=== PATIENT | female | born 1955 | race Caucasian/White ===

== ENCOUNTER 2017-12-08 08:39 | Emergency (ER) | payer BC ==
[~2017-12-08] VITALS: Ht 167.6 cm; Wt 92.6 kg
[~2017-12-08 08:39] MED LIST: 12 HOUR DECONG120 M1 PO; FLEXERIL5 MG PO; Flonase BOTH NARES; GLIPIZIDE10 MG PO; IRBESARTAN150 MG PO; JANUVIA25 MG PO; LANTUS 10100 UNITS/ SC; LOMOTIL TABLET1 EACH PO; Lomotil,Lonox PO; METFORMIN HCL1000 MG PO; NORCO 5/3251 TABLET PO; NOVOLOG PE100 UNITS/ SC
[2017-12-08 09:27] LABS: HEMATOCRIT 37.6 % (36.0-46.0); HEMOGLOBIN 12.7 G/DL (11.9-15.5); MCH 30.4 PG (29.0-34.0); MCHC 33.8 G/DL (30.0-36.0); PLATELET COUNT 193 K/uL (156-360); RBC DIS.WIDTH-CV 12.6 % (11.8-14.6); RBC DIS.WIDTH-SD 41.3 % (39-53); RED BLOOD COUNT 4.18 M/uL (3.80-5.20); WHITE BLOOD COUNT 7.7 K/uL (4.1-10.2)
[2017-12-08 09:40] LABS: ALBUMIN 4.2 g/dL (3.2-4.8)
[2017-12-08 09:41] LABS: CHLORIDE 106 mEq/L (99-109); POTASSIUM 4.5 mEq/L (3.7-5.4); SODIUM 138 mEq/L (136-147)
[2017-12-08 09:43] LABS: GLUCOSE 208 mg/dL (70-99); TOTAL PROTEIN 7.3 g/dL (6.4-8.3)
[2017-12-08 09:45] LABS: TOTAL BILIRUBIN 0.4 mg/dL (0.0-1.0)
[2017-12-08 09:46] LABS: ALKALINE PHOSPHATASE 76 IU/L (3-129)
[2017-12-08 09:47] LABS: CREATININE 0.9 mg/dL (0.6-1.3); GFR ESTIMATE (CALCULATED) > 59 mL/min/
[2017-12-08 09:48] LABS: AST (GOT) 38 IU/L (2-34); UREA NITROGEN (BUN) 16 mg/dL (9-23)
[2017-12-08 09:50] LABS: ALT (GPT) 45 IU/L (3-49)
[2017-12-08 09:58] LABS: TROP-I INTERPRETATION NEGATIVE; TROPONIN-I < 0.01 ng/mL (0.0-0.30)
[2017-12-08 12:37] LABS: TROP-I INTERPRETATION NEGATIVE; TROPONIN-I < 0.01 ng/mL (0.0-0.30)
[2017-12-08 13:30] VITALS: BP 119/62
== END 2017-12-08 13:32 | disposition home or self-care (01) ==
LOC: EME 08:39
PROVIDERS: Emergency Medicine Emergency Medical Services
DX: R07.9 Chest pain, unspecified (principal); K58.9 Irritable bowel syndrome, unspecified; Z87.891 Personal history of nicotine dependence
CPT/HCPCS: 71045; 80053; 84484; 85027; 93005; 99281; 99285